=== PATIENT | female | born 1975 | race Caucasian/White ===

== ENCOUNTER 2017-01-08 21:22 | Observation (INO) ==
[2017-01-08 23:13] LABS: Hematocrit 39.9 % (35.3-44.9); Hemoglobin 13.1 g/dL (11.5-15.4); Mean Corpuscular HGB Conc 32.8 g/dL (31.6-35.5); Mean Corpuscular Volume 91.5 fL (83.0-100.0); Mean Platelet Volume 9.4 fL (9.4-12.4); Platelet Count 221 K/mcL (140-400); Red Blood Count 4.36 M/mcL (3.82-4.97); Red Cell Distribution Width 11.9 % (11.5-14.5)
[2017-01-08 23:26] LABS: BUN/Creatinine Ratio 13 (6-26); Blood Urea Nitrogen 14 mg/dL (7-20); Calcium 9.2 mg/dL (8.6-10.8); Carbon Dioxide 22 mEq/L (19-29); Chloride 108 mEq/L (98-109); Glucose 88 mg/dL (70-99); Osmolality,Calculated 284 (280-300); Potassium 3.8 mEq/L (3.5-4.5); Sodium 137 mEq/L (136-145); eGFR For African Americans > 60 (> 60); eGFR For Non-African Americans 56 (> 60)
[2017-01-09] MEDS ORDERED: Aspirin 81 MG TAB.CHEW PO ONE
[2017-01-09] MEDS ORDERED: Nitroglycerin 0.4 MG TAB.SUBL SL ONE
[2017-01-09 00:26] LABS: Prothrombin Time 10.6 Seconds (9.4-12.1)
[2017-01-09 00:29] LABS: Activated Partial Thrombo Time 30.3 Seconds (26.0-36.0)
--- NOTE | 2017-01-09 01:51 | Emergency Department Note ---
START Narrative - START START: I personally interviewed and examined this patient and my medical decision- making was reviewed with the SILVER, Tiffanie Fantaarielbenjamin. I agree with the documented findings, disposition and treatment plan as described except to the extent set forth below. Patient is a 41-year-old white female former smoker [facility] of left sided chest discomfort that began this morning at 10 AM. Patient states the pain has been intermittent over the last 48 hours and now constant since 10 AM associated with shortness of breath, nausea and pain radiates into the left shoulder. Patient denies any prior cardiac evaluation or workup in the past. Patient does have a positive family history and her mom of prior UT. Patient's exam is unremarkable overall. Patient received aspirin and nitroglycerin trial here and had pain relief with nitroglycerin. Portal chest x -ray is unremarkable. All labs including d-dimer and troponin initially are negative. Patient's heart score equals 4. We will admit the patient for further evaluation of chest pain. Patient notes with stable vital signs and resting comfortably at bedside at this time.
--- NOTE | 2017-01-09 02:58 | Emergency Department Note ---
Disposition Clinical Impression: Chest pain Qualifiers: Chest pain type: unspecified Qualified Code(s): R07.9 - Chest pain, unspecified Disposition: Admitted As Inpatient Condition: Fair Referrals: Nuha Yanez DO [Primary Care Provider] - Forms: ED Satisfaction Letter Time of Disposition: 04:05 Chest Pain HPI - General Chief Complaint: ED Chest Pain Stated Complaint: C/P Time Seen by Provider: 01/08/17 23:00 Source: patient Mode of arrival: ambulatory Limitations: no limitations Vital Signs Reviewed: Yes Nursing Notes Reviewed: Yes - History of Present Illness HPI Narrative: Patient states she developed chest pain yesterday, substernal non radiating. Seemed to improve. She then states she has developed chest earlier this evening , rated 7/10 and came to ED. No shortness of breath. she is a smoker, and was told she has had a "stroke in the past", unsure how long ago this was. Currently having chest pain that was relieved to 4/10 after 1 nitroglycerin. Heart score of 4. 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) Duration: intermittent Onset: during rest Pain Location: substernal Severity scale (1-10): 5 Quality: aching, heaviness Pain Radiation: none Improves with: nitroglycerin Worsens with: nothing Treatments prior to arrival chest pain: none - Related Data Home Medications Medication Instructions Recorded Confirmed Loratadine [Claritin] 10 mg PO HS 02/24/16 02/24/16 SUMAtriptan [Imitrex] 50 mg PO AD PRN 02/24/16 02/24/16 Topiramate [Topamax] 25 mg PO BID 02/24/16 02/24/16 Allergies Allergy/AdvReac Type Severity Reaction Status Date / Time No Known Allergies Allergy Verified 01/08/17 21:54 All systems ED: reviewed and negative except as stated. Constitutional: Denies: fever, chills, weakness, weight change Eyes: Denies: eye pain, eye discharge, vision change ENT ED: Denies: ear pain, throat pain, dental pain, hearing loss, epistaxis, congestion, dysphagia Cardiovascular: Reports: chest pain. Denies: palpitations, dyspnea on exertion , orthopnea, edema, syncope, paroxysmal nocturnal dyspnea Respiratory: Denies: cough, dyspnea, wheezes, hemoptysis, stridor Gastrointestinal: Denies: abdominal pain, nausea, vomiting, diarrhea, constipation, hematemesis, melena, hematochezia Musculoskeletal: Denies: back pain, neck pain, arthralgia, myalgia Integumentary: Denies: rash, abrasion, lesions Neurological: Denies: headache, weakness, numbness, paresthesias, confusion, abnormal gait, vertigo Chest Pain PMH - Past Medical History Medical history: Reports: asthma, migraine Surgical history: Reports: cholecystectomy, hysterectomy Psychiatric history: Reports: no psych history CHIROPRACTOR ASSISTANT history: Reports: no CHIROPRACTOR ASSISTANT history, bilateral tubal ligation - Social History Smoking Status: Former smoker Alcohol use: Reports: none Drug use: Reports: none Physical Exam - General Limitations: no limitations General appearance: alert, in no apparent distress - Head Head exam: atraumatic, normocephalic, normal inspection - Eye Eye exam: Present: normal appearance, PERRL, EOMI - ENT ENT exam: normal exam, normal oropharynx, mucous membranes moist, TM's normal bilaterally - Neck Neck exam: Present: normal inspection, full ROM, trachea midline. Absent: tenderness, meningismus, lymphadenopathy, thyromegaly - Chest Chest inspection: Present: normal inspection, symmetric chest wall rise - Respiratory Respiratory exam: Present: normal lung sounds bilaterally. Absent: respiratory distress, wheezes, stridor, prolonged expiratory phase - Cardiovascular Cardiovascular exam: Present: regular rate, normal rhythm, normal heart sounds. Absent: systolic murmur, diastolic murmur, JVD - Abdominal Exam Abdominal exam: Present: soft, Non-Tender, normal bowel sounds. Absent: tenderness, distention, guarding, rebound, rigidity - Extremities Exam Extremities exam: Present: normal inspection, full ROM. Absent: tenderness, pedal edema - Expanded Lower Extremity Exam Gait: observed and normal - Back Exam Back exam: Present: normal inspection, full ROM. Absent: tenderness - Neurological Exam Neurological exam: Present: alert, oriented X3, CN II-XII intact, normal gait, reflexes normal - Psychiatric Psychiatric exam: Present: normal affect, normal mood - Skin Skin exam: Present: warm, dry, intact, normal color Course - Consultations Consultation #1: spoke with Dr. Bojorquez, hospitalist and he accepted patient Time: 04:04 Vital Signs Temperature 98 F 01/08/17 21:51 Pulse Rate 70 01/08/17 21:51 Respiratory Rate 18 01/08/17 21:51 Blood Pressure 103/64 01/08/17 21:51 O2 Sat by Pulse Oximetry 98 01/08/17 21:51 Temperature 98 F 01/08/17 21:51 Pulse Rate 72 01/09/17 01:30 Respiratory Rate 18 01/09/17 01:30 Blood Pressure 100/67 01/09/17 01:30 O2 Sat by Pulse Oximetry 99 01/09/17 01:30 Oxygen Delivery Oxygen Delivery Room Air Chest Pain - Differential Diagnosis Likely: chest pain - Lab Data Lab results reviewed: Yes I reviewed the patient's lab results. Result diagrams: 01/08/17 23:10 01/08/17 23:10 Lab Results 01/08/17 01/08/17 01/08/17 Range/Units 23:10 23:10 23:10 WBC 7.5 (4.3-11.1) K/mcL RBC 4.36 (3.82-4.97) M/mcL Hgb 13.1 (11.5-15.4) g/dL Hct 39.9 (35.3-44.9) % MCV 91.5 (83.0-100.0) fL MCH 30.0 (28.0-33.3) pg MCHC 32.8 (31.6-35.5) g/dL RDW 11.9 (11.5-14.5) % Plt Count 221 (140-400) K/mcL MPV 9.4 (9.4-12.4) fL PT (9.4-12.1) Seconds INR APTT (26.0-36.0) Seconds D-Dimer (0-500) ng/mLFEU Sodium 137 (136-145) mEq/L Potassium 3.8 (3.5-4.5) mEq/L Chloride 108 (98-109) mEq/L Carbon Dioxide 22 (19-29) mEq/L BUN 14 (7-20) mg/dL Creatinine 1.08 (0.57-1.11) mg/dL Est GFR ( Amer) > 60 (> 60) Est GFR (Non-Af Amer) 56 L (> 60) BUN/Creatinine Ratio 13 (6-26) Glucose 88 (70-99) mg/dL Calculated Osmolality 284 (280-300) Calcium 9.2 (8.6-10.8) mg/dL Troponin I 0.00 (0-0.03) ng/mL 01/09/17 Range/Units 00:15 WBC (4.3-11.1) K/mcL RBC (3.82-4.97) M/mcL Hgb (11.5-15.4) g/dL Hct (35.3-44.9) % MCV (83.0-100.0) fL MCH (28.0-33.3) pg MCHC (31.6-35.5) g/dL RDW (11.5-14.5) % Plt Count (140-400) K/mcL MPV (9.4-12.4) fL PT 10.6 (9.4-12.1) Seconds INR 1.0 APTT 30.3 (26.0-36.0) Seconds D-Dimer 227 (0-500) ng/mLFEU Sodium (136-145) mEq/L Potassium (3.5-4.5) mEq/L Chloride (98-109) mEq/L Carbon Dioxide (19-29) mEq/L BUN (7-20) mg/dL Creatinine (0.57-1.11) mg/dL Est GFR ( Amer) (> 60) Est GFR (Non-Af Amer) (> 60) BUN/Creatinine Ratio (6-26) Glucose (70-99) mg/dL Calculated Osmolality (280-300) Calcium (8.6-10.8) mg/dL Troponin I (0-0.03) ng/mL - Radiology Data Radiology results reviewed: Yes I reviewed the patient's radiology results. Heart Score - Score History: Highly Suspicious EKG: Normal Age: Less than 45 Risk Factors: 1-2 risk factors Troponin: Less than normal limit HEART Score Total: 3
[2017-01-09] MEDS ORDERED: *HR* Morphine 2 MG/ML SYRINGE IVP ONE (04:03)
[2017-01-09] MEDS ORDERED: Naloxone 0.4 MG/ML INJ IVP PRN (06:08)
--- NOTE | 2017-01-09 06:31 | Internal Med History&Physical ---
Date of Encounter: 01/09/17 Time of Encounter: 06:30 Assessment and Plan (1) Chest pain Current visit: Yes Status: Acute Atypical, but did reportedly improve with SL nitro. She currently has 1/10 chest pain. First troponin negative. EKG Without ischemic changes - Nuc stress test in AM - Keep patient chest pain free - Trend troponin - SL nitro and morphine PRN pain control Internal Medicine - H&P: HPI Chief complaint: Chest pain Admitted From: Emergency Dept Plans for Post Hospital Care: Home History of present illness: Ms. Felton is a 41 year old female with history of migraine headaches who presented to the ER this morning with complaint of chest pain. She was sitting yesterday morning when she developed 5/10 left anterior chest pain which was nonradiating. The pain was pressure-like and she could not identify any exacerbating factors. She took a nap but when she woke up the pain was more severe so she presented to the ER for further evaluation. She was short of breath during the chest pain episode. She was not diaphoretic or nauseated. In the ER EKG showed NSR without ischemic changes. She was given SL nitro with improvement of pain to 1/10. She denies known history of CAD. She quit smoking one year ago. She reportedly had a TIA one year ago. Past Med Surg Social Fam HX - Past Medical History Medical history: asthma, migraine Psychiatric history: no psych history - Past Surgical History Surgical History: cholecystectomy, hysterectomy - Social History Smoking Status: Former smoker Smokeless Tobacco Status: No Alcohol use: none Drug use: none - Family History Mother Hx Family Cardiac Disorders: Yes Grandmother Hx Family Cardiac Disorders: Yes Internal Medicine - H&P: Meds SUMAtriptan [Imitrex] 50 mg PO AD PRN 02/24/16 [History] Topiramate [Topamax] 25 mg PO BID 02/24/16 [History] Aspirin [Lo-Dose Aspirin EC] 81 mg PO DAILY 01/09/17 [History] BuPROPion [Wellbutrin] 100 mg PO BID 01/09/17 [History] Cetirizine HCl [Zyrtec] 10 mg PO DAILY 01/09/17 [History] Citalopram Hydrobromide [Citalopram HBr] 20 mg PO DAILY 01/09/17 [History] Fluticasone Propionate Nasal [Flonase] 50 mcg NS DAILY 01/09/17 [History] Allergies No Known Allergies Allergy (Verified 01/08/17 21:54) All Systems PM: A 10-system review of systems was performed and is negative for pertinent findings except as documented above in the HPI. - Constitutional Vitals: Temp Pulse Resp BP Pulse Ox 98.1 F 60 15 109/72 94 01/09/17 05:49 01/09/17 05:49 01/09/17 05:49 01/09/17 05:49 01/09/17 05:49 General appearance: Present: A&O X 3, pleasant, no acute distress - Head Head exam: Present: atraumatic - Eye Eye exam: Present: EOMI, sclera anicteric - ENT ENT exam: Present: mucous membranes moist - Neck Neck exam general surgery: Present: supple - Respiratory Respiratory exam: Present: CTAB. Absent: rales, rhonchi, wheezes - Cardiovascular Cardiovascular exam: Present: RRR. Absent: diastolic murmur, gallop, rubs, systolic murmur - GI/Abdominal GI/Abdominal exam: Present: normal bowel sounds, soft. Absent: distended, tenderness - Extremities Exam Extremities exam: Absent: pedal edema - Neurological Exam Neurological exam: Present: no focal deficits - Skin Skin exam: Absent: rash Internal Med - H&P Results - Labs CBC & Chem 7: 01/08/17 23:10 01/08/17 23:10
--- NOTE | 2017-01-09 10:37 | Nuclear Medicine Stress Report ---
Exercise Nuclear Stress Name: Arleen Felton Date of Study: 01/09/2017 Date: 1975 Ht: 64.0 in Medical Record#: [id number] Age: 41 Wt: 133.0 lb Gender: Female Order #: [id number] Location: [facility] IP Room: [facility] Supervising Provider: Anselmo Gray CNP Reading Physician: Kvng Rogers DO, FACKodak, GALILEA VINES Ordering Physician: Raeann Ramirez CNP Primary Care Physician: Nuha Yanez DO Stress Technologist: Oscar Callejas, BENCH TECHNICIAN, CPFT Materials Clerk: Ventura Jimenez Indications: Chest Pain Impression: Exercise ECG is negative for ischemia. The exercise capacity was good. Chest discomfort reported during exercise. Gated EF > 70%. Perfusion imaging was negative for ischemia or infarct. Stress Test Summary: Stress Test Type: Treadmill Protocol: Gama Baseline Information: Initial Heart Rate: 60 Blood Pressure: 92/68 Stress Information: Stress Time: 10 min 00 sec Test Terminated Due to (primary): Dyspnea Maximum Blood Pressure: 140/66 Maximum Heart Rate: 154 Percent Maximum Heart Rate Achieved: 85 Double Product: [id number] METS Reached: 12.8 Symptoms: Chest pain, Shortness of breath Nuclear Summary: SPECT myocardial perfusion imaging using Tc99m Sestamibi given intravenously was performed at rest and following cardiac stress testing. The resting images were obtained following initial dose of 10.6 mCi. Following stress an additional dose of 35.7 mCi was given at peak exercise or 30 seconds post regadenoson infusion. Medication Given: Time Medication Dose Units Route Findings: Stress Note * Resting ECG demonstrated normal sinus rhythm. * No baseline arrhythmias were noted. * Exercise ECG is negative for ischemia. * No arrhythmias were noted during stress. * The exercise capacity was good. * Chest discomfort reported during exercise. Hemodynamic responses * Normal hemodynamic responses to exercise. Study Quality * Study quality is average. Gated EF > 70% * Gated EF > 70%. Left Ventricle * The left ventricle is not dilated. NORMALS * Normal wall motion. * Normal segmental perfusion in stress. * Normal Segmental Perfusion in rest. TID * No evidence of transient ischemic dilatation. TID ratio * TID ratio = 1.00. Lung Uptake * There is no evidence of increase lung uptake. Updated by Kvng Rogers DO, MIN, MOHINDER, GALILEA on 01/09/2017 10:32:26 AM electronically signed on 01/09/2017 10:32:48 AM with status of Final
--- NOTE | 2017-01-09 12:27 | Electrocardiograph Report ---
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
--- NOTE | 2017-01-09 12:27 | Electrocardiograph Report ---
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
[2017-01-09 13:43] VITALS: BP 92/55
--- NOTE | 2017-01-09 14:39 | Discharge Summary ---
Date of Encounter: 01/09/17 Time of Encounter: 13:45 - Discharge Diagnosis (1) Chest pain Priority: Primary Status: Ruled-out Comments: Chest x-ray negative. Troponins negative. Stress test negative. ACS ruled out. Patient denies shortness of breath above her normal day of discharge. Patient tolerated a regular diet prior to discharge. Qualifiers: Chest pain type: unspecified Qualified Code(s): R07.9 - Chest pain, unspecified (2) Esophageal spasm Priority: Primary Status: Suspected Comments: Patient with mild epigastric pain after eating during this admission. Acute coronary syndrome ruled out. Pain was resolved with nitroglycerin consistent with esophageal spasm. Started on daily PPI. Follow up outpatient. (3) TIA (transient ischemic attack) Priority: Secondary Status: Resolved Comments: Prior. No focal neurological weakness is present during this admission. Qualifiers: Transient cerebral ischemia type: unspecified Qualified Code(s): G45.9 - Transient cerebral ischemic attack, unspecified - Discharge Medications Prescriptions: Omeprazole 20 mg PO DAILY #30 tablet.dr Santiago Medications: SUMAtriptan [Imitrex] 50 mg PO AD PRN 02/24/16 [History] Aspirin [Lo-Dose Aspirin EC] 81 mg PO DAILY 01/09/17 [History] BuPROPion [Wellbutrin] 100 mg PO BID 01/09/17 [History] Cetirizine HCl [Zyrtec] 10 mg PO DAILY 01/09/17 [History] Citalopram Hydrobromide [Citalopram HBr] 20 mg PO DAILY 01/09/17 [History] Fluticasone Propionate Nasal [Flonase] 50 mcg NS DAILY 01/09/17 [History] Omeprazole 20 mg PO DAILY #30 tablet. 01/09/17 [Rx] Topiramate [Topamax] 100 mg PO BID 01/09/17 [History] Allergies/Adverse Reactions: Allergies No Known Allergies Allergy (Verified 01/08/17 21:54) Procedures/tests Complete & Pending: Procedures Performed prior 72 hours Category Date Time Status NM rakan perf SPECT multi [NM] Routine Exams 01/09/17 06:27 Taken SP exercise nuclear stress Routine Y 01/09/17 06:24 Completed Date of admission: 01/09/17 04:48 Primary care physician: Nuha Yanez DO Discharging clinician: Raeann Ramirez Anticipated date of discharge: 01/09/17 - Patient Status Disposition: Home, Self-Care Condition: Good Functional capacity at discharge: independent ambulation Overall status at discharge: patient is back to baseline - Discharge Instructions Instructions: Chest Pain (DC) Follow Up With: Nuha Yanez DO [Primary Care Provider] - Additional Instructions: Follow-up with primary care provider within one to 2 weeks, check blood pressure daily - Diet and Activity Activity: increase activity as tolerated Diet: regular diet Hospital course: Ms. Felton is a 41 year old female with past medical history of former tobacco abuse, migraines, status post cholecystectomy and hysterectomy. Patient presented to the emergency department chief complaint of chest pain that started on the day of presentation and located in her left anterior chest and did not radiate. The pain was pressure-like and patient was unable to identify exacerbating factors. Patient stating she took a nap but when she woke up the pain was more severe prompting her presentation to emergency department. She was not diaphoretic or nauseated. Workup in the emergency department unremarkable. No ischemic changes noted on EKG. Her pain however was improved with sublingual nitroglycerin. She states she stopped smoking approximately one year ago. Chest x-ray negative. Patient was admitted to the hospitalist service for further evaluation and management. Troponins were negative 3. Patient had an exercise nuclear stress test that was negative for ischemia or infarct and revealed an ejection fraction greater than 70%. Acute coronary syndrome is ruled out. Patient was able to tolerate a regular diet prior to discharge however she did have small amount of epigastric pain. She was started on a PPI. Likely cause of her chest pain consistent with esophageal spasm which is consistent with relief with nitroglycerin. Of note, patient had mild hypotension during this admission but was asymptomatic and her heart rate remained stable. Recommend daily blood pressure checks at home and following up outpatient. She was discharged home in stable condition with close outpatient follow-up recommended. ITS Impressions Chest X-Ray 01/08/17 21:55 IMPRESSION: No acute process. D/ / Berny Barnhart MD / Berny Barnhart MD Interpreting Provider: Berny Barnhart MD Exercise nuclear stress test impression: Exercise ECG is negative for ischemia. Exercise capacity was good. Chest discomfort reported during exercise. Gated ejection fraction greater than 70%. Perfusion imaging was negative for ischemia or infarct. - Time Spent with Patient Total time spent providing and/or coordinating discharge services: - Constitutional Vitals: Temp Pulse Resp BP Pulse Ox 98.0 F 74 16 92/55 96 01/09/17 13:41 01/09/17 13:41 01/09/17 13:41 01/09/17 13:41 01/09/17 13:41 General appearance: Present: A&O X 3, pleasant, no acute distress, answers questions appropriately - Head Head exam: Present: atraumatic, normocephalic - Eye Eye exam: Present: PERRL, conjuntiva pink, sclera anicteric Pupils: Present: PERRL - Neck Neck exam general surgery: Present: supple, trachea midline. Absent: lymphadenopathy - Respiratory Respiratory exam: Present: CTAB. Absent: accessory muscle use, rales, respiratory distress, rhonchi, wheezes - Cardiovascular Cardiovascular exam: Present: RRR, +S1, +S2. Absent: diastolic murmur, gallop, rubs, systolic murmur - GI/Abdominal GI/Abdominal exam: Present: normal bowel sounds, soft, no peritoneal signs. Absent: distended, tenderness - Extremities Exam Extremities exam: Present: warm, radial pulses palpable and symetrical. Absent : calf tenderness, cyanotic, pedal edema - Neurological Exam Neurological exam: Present: alert, CN II-XII intact, normal gait, oriented X3, no focal deficits, strengths equal and symetr throughout. Absent: pronater drift, facial droop, speech deficit - Skin Skin exam: Present: dry, intact, normal color, warm
== END 2017-01-09 15:35 | disposition home or self-care (01) ==
LOC: 3BNU 21:22 → EMEROO 21:22 → 3BNU 01-09 05:22
PROVIDERS: ADMIT Nurse Practitioner Family; ATTEND Nurse Practitioner Family